=== PATIENT | male | born 1955 | race Caucasian/White ===

== ENCOUNTER 2024-05-27 16:54 | Inpatient (IN) | payer MEDICARE, OTHER ==
[~2024-05-27] VITALS: Ht 170.2 cm; Wt 97.1 kg
[2024-05-27] MEDS ORDERED: ALPR0.5T PO (17:36)
[2024-05-27] MEDS ORDERED: HYDR-3972 PO (17:36)
[2024-05-27] MEDS ORDERED: DOCU100T2 PO (17:36)
[2024-05-27] MEDS ORDERED: MULT-213 PO (17:36)
[2024-05-27] MEDS ORDERED: [UNRECOGNIZED DRUG - CODE] TOP (17:36)
[2024-05-27] MEDS ORDERED: ATOR40TA PO (17:36)
[2024-05-27] MEDS ORDERED: DIVA250T PO (17:36)
[2024-05-27] MEDS ORDERED: IBUP-1953 PO (17:36)
[2024-05-27] MEDS ORDERED: CHOL10005 PO (17:36)
[2024-05-27] MEDS ORDERED: MELA5TAB21 PO (17:36)
[2024-05-27] MEDS ORDERED: ASPI81TA31 PO (17:36)
[2024-05-27] MEDS ORDERED: NALO4SPR NS (17:36)
[2024-05-27 18:04] LABS: BASOPHILS % (AUTO) 0.6 % (0.0-2.0); EOSINOPHILS # (AUTO) 0.2 K/uL (0.0-0.7); EOSINOPHILS % (AUTO) 4.1 % (0.0-7.0); HEMOGLOBIN 14.7 g/dL (12.5-16.3); LYMPHOCYTES # (AUTO) 2.1 K/uL (0.8-4.8); MEAN CORPUSCULAR HEMOGLOBIN 31.6 uug (23.8-33.4); MEAN CORPUSCULAR HGB CONC 34 g/dL (32.5-36.3); MEAN CORPUSCULAR VOLUME 94.3 fL (73.0-96.2); MONOCYTES # (AUTO) 0.7 K/uL (0.1-1.30); MONOCYTES % (AUTO) 12.5 % (0.0-11.0); NEUTROPHILS # (AUTO) 2.6 K/uL (1.8-8.9); NEUTROPHILS % (AUTO) 45.8 % (38.5-71.5); PLATELET COUNT (AUTO) 163 K/uL (152-348); RED BLOOD CELL COUNT(AUTO) 4.67 MIL/uL (4.06-5.63); RED CELL DISTRIBUTION WIDTH 13.8 % (12.1-16.2); WHITE BLOOD COUNT (AUTO) 5.7 K/uL (3.6-10.2)
[2024-05-27 18:12] LABS: *BILIRUBIN,URIN NEGATIVE (NEGATIVE); *BLOOD, URINE NEGATIVE (NEGATIVE); *CLARITY,URINE CLEAR (CLEAR); *COLOR,URINE YELLOW (YELLOW); *KETONES,URINE NEGATIVE (NEGATIVE); *PROTEIN,URINE NEGATIVE (NEGATIVE); *UROBILINOGEN,URINE 0.2 E.U./dl (NORMAL); LEUKOCYTE ESTERASE ,URINE NEGATIVE (NEGATIVE); NITRITE, URINE NEGATIVE (NEGATIVE); UGLUCOSE NEGATIVE (NEGATIVE)
[2024-05-27 18:13] LABS: CALCIUM 8.8 mg/dL (8.5-10.1); CREATININE 0.9 mg/dL (0.6-1.3); DIFFERENTIAL COMMENT 1; POTASSIUM 4.2 mmol/L (3.5-5.1)
[2024-05-27 18:25] LABS: ALBUMIN 3.2 g/dL (3.4-5.0); BILIRUBIN,DIRECT 0.2 mg/dL (0.0-0.2); BILIRUBIN,TOTAL 0.6 mg/dL (0.2-1.0); TOTAL PROTEIN, SERUM 7.6 g/dL (6.4-8.2)
[2024-05-27 18:30] LABS: *AMPHETAMINE, URINE NEGATIVE (NEGATIVE); *BARBITURATE, URINE NEGATIVE (NEGATIVE); *BENZODIAZEPINE, URINE POSITIVE (NEGATIVE); *CANNABINOID, URINE NEGATIVE (NEGATIVE); *COCCAINE, URINE NEGATIVE (NEGATIVE); *OPIATE, URINE NEGATIVE (NEGATIVE); *PHENCYCLIDINE SCREEN,URINE NEGATIVE (NEGATIVE); FENTANYL, URINE NEGATIVE (NEGATIVE)
[2024-05-28] MEDS ORDERED: diphenhydrAMINE 50 MG/1 ML VIAL ONE (01:51)
[2024-05-28] MEDS ORDERED: LORAZEPAM 2 MG/1 ML VIAL ONE (01:52)
[2024-05-28] MEDS: diphenhydrAMINE 50 MG/1 ML VIAL IM ONE (02:01)
[2024-05-28] MEDS: LORAZEPAM 2 MG/1 ML VIAL IM ONE (02:01)
[2024-05-28] MEDS ORDERED: PERMETHRIN 5% CREAM 60 GM TUBE TP ONE (02:24)
[2024-05-28] MEDS ORDERED: MAGNESIUM HYDROXIDE 30 ML LIQUID UDC PO PRN (02:30)
[2024-05-28] MEDS ORDERED: MAG HYDROX/AL HYDROX/SIMETH 30 ML LIQUID UDC PO PRN (02:30)
[2024-05-28] MEDS ORDERED: LORAZEPAM 1 MG TABLET PO PRN (02:30)
[2024-05-28] MEDS ORDERED: TEMAZEPAM 7.5 MG CAPSULE PO PRN (02:30)
[2024-05-28] MEDS: BLOOD SUGAR DIAGNOSTIC 1 EACH STRIP VI ONE (02:52)
[2024-05-28] MEDS ORDERED: CHOL-35 PO (08:43)
[2024-05-28] MEDS: PERMETHRIN 5% CREAM 60 GM TUBE TP ONE (14:37)
[2024-05-28] MEDS: LORAZEPAM 1 MG TABLET PO PRN (15:42)
[2024-05-28] MEDS: DIVALPROEX 125 MG TABLET.DR PO SCH (15:42)
[2024-05-28] MEDS: IBUPROFEN 400 MG TABLET PO PRN (15:43)
[2024-05-28] MEDS: risperiDONE 0.5 MG TABLET PO SCH (15:57)
[2024-05-28] MEDS: ALPRAZOLAM 0.5 MG TABLET PO SCH (17:24)
[2024-05-28 20:00] VITALS: BP 117/60; TEMP 98; O2SAT 95
[2024-05-28] MEDS: ATORVASTATIN 40 MG TABLET PO SCH (22:15)
[2024-05-29 08:14] VITALS: BP 161/76; TEMP 98.3; O2SAT 100
[2024-05-29] MEDS: ASPIRIN 81 MG TAB.CHEW PO SCH (08:49)
[2024-05-29 16:10] VITALS: BP 151/80; TEMP 98.1; O2SAT 98
[2024-05-29 20:00] VITALS: BP 129/90; TEMP 98.1; O2SAT 97
[2024-05-29] MEDS: HYDROCODONE/APAP 5-325MG TABLET PO PRN (21:10)
[2024-05-30] MEDS: TEMAZEPAM 7.5 MG CAPSULE PO PRN (01:55)
[2024-05-30 08:14] VITALS: BP 122/51; TEMP 98; O2SAT 100
[2024-05-30 16:12] VITALS: BP 152/88; TEMP 97.5; O2SAT 100
[2024-05-30] MEDS: ACETAMINOPHEN 325 MG TABLET PO PRN (19:57)
[2024-05-30 20:05] VITALS: BP 134/42; TEMP 98; O2SAT 99
[2024-05-30] MEDS: LORAZEPAM 2 MG/1 ML VIAL IM ONE (22:31)
[2024-05-30] MEDS: diphenhydrAMINE 50 MG/1 ML VIAL IM ONE (22:31)
[2024-05-30] MEDS: HALOPERIDOL LACTATE 5 MG/1 ML VIAL IM ONE (22:32)
[2024-05-31] MEDS: risperiDONE 0.5 MG TABLET PO SCH (09:36)
[2024-06-01 08:18] VITALS: BP 121/79; TEMP 98.1; O2SAT 96
[2024-06-01] MEDS: risperiDONE 0.5 MG TABLET PO SCH (12:09)
[2024-06-01 16:16] VITALS: BP 128/71; TEMP 98.3; O2SAT 98
[2024-06-01 20:00] VITALS: BP 107/65; TEMP 98.7; O2SAT 96
[2024-06-02 08:14] VITALS: BP 166/85; TEMP 97.5; O2SAT 96
[2024-06-02] MEDS: DIVALPROEX 250 MG TABLET.DR PO SCH (12:28)
[2024-06-02] MEDS ORDERED: DIVALPROEX 125 MG TABLET.DR PO SCH (13:00)
[2024-06-02 16:16] VITALS: BP 124/58; TEMP 97.7; O2SAT 100
[2024-06-02 20:00] VITALS: BP 128/63; TEMP 98; O2SAT 99
[2024-06-02] MEDS: ALPRAZOLAM 0.5 MG TABLET PO SCH (22:02)
[2024-06-03 08:39] VITALS: BP 122/61; TEMP 98; O2SAT 98
[2024-06-03 08:56] LABS: BASOPHILS % (AUTO) 0.7 % (0.0-2.0); EOSINOPHILS # (AUTO) 0.2 K/uL (0.0-0.7); EOSINOPHILS % (AUTO) 3.5 % (0.0-7.0); HEMATOCRIT 41.3 % (36.7-47.1); HEMOGLOBIN 13.7 g/dL (12.5-16.3); LYMPHOCYTES # (AUTO) 2.1 K/uL (0.8-4.8); LYMPHOCYTES % (AUTO) 36.4 % (20.5-51.5); MEAN CORPUSCULAR HEMOGLOBIN 31.7 uug (23.8-33.4); MEAN CORPUSCULAR HGB CONC 33 g/dL (32.5-36.3); MEAN CORPUSCULAR VOLUME 95.2 fL (73.0-96.2); MONOCYTES # (AUTO) 0.8 K/uL (0.1-1.30); NEUTROPHILS # (AUTO) 2.6 K/uL (1.8-8.9); NEUTROPHILS % (AUTO) 45.4 % (38.5-71.5); PLATELET COUNT (AUTO) 166 K/uL (152-348); RED BLOOD CELL COUNT(AUTO) 4.34 MIL/uL (4.06-5.63); RED CELL DISTRIBUTION WIDTH 13.5 % (12.1-16.2); WHITE BLOOD COUNT (AUTO) 5.7 K/uL (3.6-10.2)
[2024-06-03 09:00] LABS: DIFFERENTIAL COMMENT 1
[2024-06-03 09:09] LABS: ALBUMIN 2.9 g/dL (3.4-5.0); BILIRUBIN,TOTAL 0.5 mg/dL (0.2-1.0); CALCIUM 8.3 mg/dL (8.5-10.1); CREATININE 0.9 mg/dL (0.6-1.3); POTASSIUM 4.2 mmol/L (3.5-5.1); TOTAL PROTEIN, SERUM 6.7 g/dL (6.4-8.2)
[2024-06-03 20:00] VITALS: BP 99/62; TEMP 98.4; O2SAT 94
[2024-06-04] MEDS: OLANZAPINE 10 MG VIAL IM ONE (08:52)
[2024-06-04] MEDS ORDERED: risperiDONE-M 0.5 MG TAB.RAPDIS PO SCH (09:00)
[2024-06-04] MEDS ORDERED: OLANZAPINE ZYDIS 5 MG TAB.RAPDIS PO PRN (09:00)
[2024-06-04] MEDS: DIVALPROEX 500 MG TABLET.DR PO SCH (09:00)
[2024-06-04 09:24] VITALS: BP 118/71; TEMP 98; O2SAT 98
[2024-06-04] MEDS: HALOPERIDOL LACTATE 5 MG/1 ML VIAL IM ONE (12:37)
[2024-06-04] MEDS: risperiDONE-M 0.5 MG TAB.RAPDIS PO SCH (13:15)
[2024-06-04 15:32] VITALS: BP 168/97; TEMP 98; O2SAT 98
[2024-06-04 20:00] VITALS: BP 123/69; TEMP 98; O2SAT 97
[2024-06-05 08:18] VITALS: BP 142/56; TEMP 98; O2SAT 100
[2024-06-05 16:08] VITALS: BP 119/66; TEMP 97.8; O2SAT 100
[2024-06-05 20:00] VITALS: BP 103/60; TEMP 97.6; O2SAT 94
[2024-06-05] MEDS: risperiDONE-M 0.5 MG TAB.RAPDIS PO SCH (20:41)
[2024-06-05] MEDS: ALPRAZOLAM 0.25 MG TABLET PO SCH (20:42)
[2024-06-06 08:29] VITALS: BP 139/93; TEMP 98; O2SAT 98
[2024-06-06 16:36] VITALS: BP 129/90; TEMP 98; O2SAT 99
[2024-06-06 20:39] VITALS: BP 105/61; TEMP 98.5; O2SAT 97
[2024-06-07 08:25] VITALS: BP 120/67; TEMP 98; O2SAT 97
[2024-06-07 15:38] VITALS: BP 117/62; TEMP 98; O2SAT 98
[2024-06-07 20:26] VITALS: BP 121/66; TEMP 98.1; O2SAT 96
[2024-06-08 08:16] VITALS: BP 129/105; TEMP 98.3; O2SAT 100
[2024-06-08 16:12] VITALS: BP 133/69; TEMP 97.5; O2SAT 100
[2024-06-08 20:00] VITALS: BP 119/85; TEMP 97.5; O2SAT 99
[2024-06-08] MEDS: DIVALPROEX 250 MG TABLET.DR PO SCH (21:44)
[2024-06-09 15:18] VITALS: BP 95/57; TEMP 98; O2SAT 98
== END 2024-06-09 15:30 | DRG 885 ==
LOC: ER 16:54 → GPS 22:00
PROVIDERS: ADMIT Psychiatry & Neurology Psychosomatic Medicine; ATTEND Nurse Practitioner Acute Care
DX: F29 Unspecified psychosis not due to a substance or known physiological condition (principal); R45.851 Suicidal ideations; E44.0 Moderate protein-calorie malnutrition; I69.354 Hemiplegia and hemiparesis following cerebral infarction affecting left non-dominant side; F20.9 Schizophrenia, unspecified; B86 Scabies; G89.4 Chronic pain syndrome; I25.2 Old myocardial infarction; G47.00 Insomnia, unspecified; E78.5 Hyperlipidemia, unspecified; I25.10 Atherosclerotic heart disease of native coronary artery without angina pectoris; Z68.33 Body mass index [BMI] 33.0-33.9, adult; E66.9 Obesity, unspecified; I10 Essential (primary) hypertension; F41.9 Anxiety disorder, unspecified; Z91.199 Patient's noncompliance with other medical treatment and regimen due to unspecified reason; Z81.8 Family history of other mental and behavioral disorders; E11.9 Type 2 diabetes mellitus without complications; Z79.82 Long term (current) use of aspirin; Z79.899 Other long term (current) drug therapy; R41.89 Other symptoms and signs involving cognitive functions and awareness; R26.9 Unspecified abnormalities of gait and mobility; M62.59 Muscle wasting and atrophy, not elsewhere classified, multiple sites
CPT/HCPCS: 36415; 80164; 85025; 93005; J1200; J1630; J2060; J2358; J3490